=== PATIENT | female | born 1940 | race Caucasian/White ===

== ENCOUNTER → 2021-11-23 | Outpatient (CLI) | payer MEDICARE ==
[~2021-11-23] MED LIST: ALEVE 220MG220 MG PO; ARICEPT 5MG PO; DELSYM30 MG/5 ML PO; MELATONIN3 M1 PO
== END ==
LOC: COL.RAD 07:58
DX: F03.90 Unspecified dementia, unspecified severity, without behavioral disturbance, psychotic disturbance, mood disturbance, and anxiety (principal)
CPT/HCPCS: A9585

== ENCOUNTER 2021-11-25 13:06 | Outpatient (CLI) | payer MEDICARE, MEDICAID ==
[~2021-11-25] VITALS: Ht 154.9 cm; Wt 80.9 kg
[2021-11-25] VITALS (7 sets, daily range): BP systolic 117–129; BP diastolic 59–72; PULSE 63–79; TEMP 97.7
[2021-11-25] MEDS ORDERED: MELATONIN3 M1 PO (14:14)
[2021-11-25] MEDS ORDERED: ARICEPT 5MG PO (14:14)
[2021-11-25] MEDS ORDERED: DELSYM30 MG/5 ML PO (14:14)
[2021-11-25] MEDS ORDERED: ALEVE 220MG220 MG PO (14:15)
--- NOTE | 2021-11-25 15:35 | NUR ---
Pt tolerated infusion and 1 hr obs period without issue. INT DC'd with catheter intact. She is assisted out to [facility] for transport back to her apartment.
== END 2021-11-25 15:35 | disposition home or self-care (01) ==
LOC: EUO 13:06
DX: U07.1 COVID-19 (principal)
CPT/HCPCS: M0247; Q0247